=== PATIENT | female | born 1970 | race Caucasian/White ===

== ENCOUNTER 2020-05-11 10:12 | Emergency (ER) | payer MEDICAID ==
[~2020-05-11] VITALS: Ht 167.6 cm; Wt 102.1 kg
[2020-05-11 10:17] VITALS: Ht 167.6 cm; Wt 102.1 kg
[2020-05-11 11:42] LABS: CALCIUM 8.7 mg/dL (8.5-10.1); CARBON DIOXIDE 33.5 mmol/L (21-32); CHLORIDE SERUM 100 mmol/L (98-107); CREATININE SERUM 0.8 mg/dL (0.6-1.0); GFR1 > 60 mL/min; GLUCOSE SERUM 98 mg/dL (74-106); POTASSIUM SERUM 3.7 mmol/L (3.5-5.1); SODIUM SERUM 138 mmol/L (136-145)
[2020-05-11 11:44] LABS: FREE T4 1.47 ng/dL (0.76-1.46); T3 TOTAL 1.5 ng/mL
[2020-05-11 11:51] LABS: FREE THYROXINE INDEX 4.6 ug/dL (1.4-4.5); T4(THYROXINE) 13.6 ug/dL (4.7-13.3)
[2020-05-11 11:51] LABS: microscopic required? YES; urine erythrocyte NEGATIVE (NEGATIVE)
[2020-05-11 11:54] LABS: ALKALINE PHOSPHATASE 78 U/L (46-116); ALT/SGPT 50 U/L (14-59); AST/SGOT 35 U/L (15-37); BILIRUBIN TOTAL 0.39 mg/dL (0.20-1.00); TOTAL PROTEIN, SERUM 7.3 g/dL (6.4-8.2)
[2020-05-11 12:01] LABS: ALBUMIN 3.1 g/dL (3.4-5.0)
[2020-05-11 12:24] LABS: AMPHETAMINE QUAL UR NONE DETECTED (See below)
[2020-05-11 12:48] LABS: BASOPHIL % 0.6 % (0-2); RED CELL DISTRIBUTION WIDTH 14.2 % (11.5-14.5)
[2020-05-11 12:58] VITALS: BP 126/90
[2020-05-11 13:00] LABS: PLATELET COUNT 450 x10^3mcL (130-400)
== END 2020-05-11 12:58 | disposition home or self-care (01) ==
LOC: ED 10:12
PROVIDERS: Emergency Medicine
DX: R22.43 Localized swelling, mass and lump, lower limb, bilateral (principal); I10 Essential (primary) hypertension
CPT/HCPCS: 83880; 84439; Q0092

== ENCOUNTER 2020-06-03 12:27 | Emergency (ER) | payer MEDICAID ==
[2020-06-03 13:09] VITALS: BP 137/86
== END 2020-06-03 16:44 | disposition home or self-care (01) ==
LOC: ED 12:27
DX: M17.0 Bilateral primary osteoarthritis of knee (principal); M54.16 Radiculopathy, lumbar region; I10 Essential (primary) hypertension; E66.01 Morbid (severe) obesity due to excess calories
CPT/HCPCS: J1100; J1885